=== PATIENT | female | born 1960 | race Caucasian/White ===

== ENCOUNTER 2016-11-09 19:53 | Emergency (ER) | payer OTHER ==
[~2016-11-09] VITALS: Ht 154.9 cm; Wt 79.4 kg
[2016-11-09 19:55] VITALS: BP 173/78
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
[2016-11-09] MEDS ORDERED: NAPROXEN 250 MG TABLET PO ONE (20:45)
== END 2016-11-09 21:02 ==
LOC: ER 19:53
DX: S90.01XA Contusion of right ankle, initial encounter (principal); M54.6 Pain in thoracic spine; Z88.2 Allergy status to sulfonamides; V47.6XXA Car passenger injured in collision with fixed or stationary object in traffic accident, initial encounter; Y93.89 Activity, other specified; Y92.410 Unspecified street and highway as the place of occurrence of the external cause; Y99.8 Other external cause status
CPT/HCPCS: 81025; 99283